=== PATIENT | female | born 1940 | race Caucasian/White ===

== ENCOUNTER 2019-02-25 18:00 | Inpatient (IN) | payer OTHER ==
[~2019-02-25] VITALS: Ht 165.1 cm; Wt 66.3 kg
[2019-02-25 18:00] VITALS: BP_SYST 189
[2019-02-25] MEDS ORDERED: NACL 0.9% 1,000 ML IV ONE (18:05)
[2019-02-25 18:55] LABS: BASOPHILS % (AUTO) 0.5 % (0.0-2.0); EOSINOPHILS # (AUTO) 0.1 K/uL (0.0-0.4); EOSINOPHILS % (AUTO) 1.9 % (0.0-4.0); HEMATOCRIT 38.1 % (36-48); HEMOGLOBIN 12.6 g/dL (12.0-16.0); LYMPHOCYTES # (AUTO) 1.1 K/uL (1.0-5.5); LYMPHOCYTES % (AUTO) 14.4 % (20.5-51.5); MEAN CORPUSCULAR HEMOGLOBIN 28 pg (27-31); MEAN CORPUSCULAR HGB CONC 33 % (32-36); MEAN CORPUSCULAR VOLUME 86 fL (79.0-98.0); MONOCYTES # (AUTO) 0.5 K/uL (0.0-1.0); MONOCYTES % (AUTO) 6.9 % (1.7-9.3); NEUTROPHILS # (AUTO) 5.8 K/uL (1.8-7.7); NEUTROPHILS % (AUTO) 76.3 % (40.0-70.0); PLATELET COUNT (AUTO) 216 K/uL (130-430); RED BLOOD CELL COUNT(AUTO) 4.43 MIL/uL (4.2-6.2); RED CELL DISTRIBUTION WIDTH 15.9 % (9.0-15.0); WHITE BLOOD COUNT (AUTO) 7.6 K/uL (4.8-10.8)
[2019-02-25 19:17] LABS: PROTHROMBIN TIME 9.8 SECS (9.5-12.5)
[2019-02-25 19:31] LABS: ANION GAP 7 (5-15); CHLORIDE 102 mmol/L (98-107); CREATININE 0.86 mg/dL (0.55-1.30); GLUCOSE 157 mg/dL (70-99); POTASSIUM 3.7 mmol/L (3.5-5.1); SODIUM SERUM 135 mmol/L (136-145); UREA NITROGEN, BLOOD 29 mg/dL (8-21)
[2019-02-25 19:35] LABS: ALANINE AMINOTRANSFERASE 13 U/L (12-78); ALBUMIN 3.9 g/dL (3.4-4.8); AMYLASE 73 U/L (0-100); ASPARTATE AMINOTRANSFERASE 13 U/L (10-37); LIPASE 150 U/L (73-393); TOTAL BILIRUBIN 0.8 mg/dL (0.0-1.0)
[2019-02-25 19:39] LABS: ALCOHOL, BLOOD < 3 mg/dL (<10)
[2019-02-25] MEDS ORDERED: D5NS 1,000 ML IV ONE (20:30)
[2019-02-25] MEDS ORDERED: INSU100I26 SQ (21:32)
[2019-02-25] MEDS ORDERED: INSU100V SQ (21:40)
[2019-02-25] MEDS ORDERED: D5W 1,000 ML IV PRN (22:03)
[2019-02-25] MEDS ORDERED: LIP10 PO (22:14)
[2019-02-25] MEDS ORDERED: ONDANSETRON HCL 4 MG/2 ML VIAL IVP PRN (22:15)
[2019-02-25] MEDS ORDERED: DOCUSATE SODIUM 100 MG/10 ML UDC PO PRN (22:15)
[2019-02-25] MEDS ORDERED: GLUCOSE 15 GM GEL (in 37.5 GM TUBE) PO PRN (22:15)
[2019-02-25] MEDS ORDERED: hydrALAZINE HCL 20 MG/ML VIAL IVP PRN (22:15)
[2019-02-25] MEDS ORDERED: DEXTROSE 50% JECT 50 ML DISP.SYRIN IVP PRN (22:15)
[2019-02-25] MEDS ORDERED: ACETAMINOPHEN 500 MG TABLET PO PRN (22:15)
[2019-02-25] MEDS ORDERED: HYDROcodone/ACETAMIN 7.5-325 MG TAB PO PRN (22:15)
[2019-02-25] MEDS ORDERED: SYNTHROID PO (22:19)
[2019-02-25 22:41] LABS: BILIRUBIN,URINE NEGATIVE (NEGATIVE); BLOOD, URINE 1+ (NEGATIVE); CLARITY/URINE SL HAZY (CLEAR); COLOR,URINE YELLOW (YELLOW); GLUCOSE,URINE 1+ (NEGATIVE); KETONES,URINE NEGATIVE (NEGATIVE); LEUKOCYTE ESTERASE ,URINE 3+ (NEGATIVE); NITRITE, URINE NEGATIVE (NEGATIVE); PH,URINE 5.5 (5.0-8.0); PROTEIN URINE NEGATIVE (NEGATIVE); UROBILINOGEN,URINE 0.2 (0.2-1.0)
[2019-02-25] MEDS ORDERED: ENALAPRIL MALEATE 10 MG TABLET (VASOTEC) PO ONE (22:45)
[2019-02-25 22:47] LABS: BARBITURATE, URINE NEGATIVE (NEG <=200); BENZODIAZEPINE, URINE NEGATIVE (NEG <=150); CANNABINOID, URINE NEGATIVE (NEG <=50); COCAINE, URINE NEGATIVE (NEG <=150); METHAMPHETAMINES SCREEN,URINE NEGATIVE (NEG <=500); OPIATE, URINE NEGATIVE (NEG <=100); PHENCYCLIDINE SCREEN,URINE NEGATIVE (NEG <=25); UR TRICYCLIC ANTIDEPRESSANTS NEGATIVE (NEG <=300); URINE AMPHETAMINE NEGATIVE (NEG <=500); URINE METHADONE NEGATIVE (NEG <=200); URINE OXYCODONE SCREEN NEGATIVE (NEG <=100); URINE PROPOXYPHENE SCREEN NEGATIVE (NEG <=300)
[2019-02-25 22:50] LABS: BACTERIA,URINE MODERATE /HPF (None Seen); WBC,URINE 50-80 /HPF (0-3)
[2019-02-25 22:52] LABS: MUCUS,URINE None Seen /LPF (None Seen); YEAST,URINE Moderate /HPF (None Seen)
[2019-02-25 22:54] VITALS: BP_SYST 165
[2019-02-25 22:57] LABS: FREE T4 (FREE THYROXINE) 0.8 ng/dL (0.6-1.6); PHOSPHORUS 3.1 mg/dL (2.7-4.5); THYROID STIMULATING HORMONE 0.44 uIu/mL (0.34-4.82)
[2019-02-25 23:52] VITALS: BP_SYST 162
[2019-02-25] MEDS: D5NS 1,000 ML IV SCH (23:54)
[2019-02-26 01:01] VITALS: BP_SYST 141
[2019-02-26 07:30] VITALS: BP_SYST 141
[2019-02-26] MEDS ORDERED: MECLIZINE HCL 25 MG TABLET (ANITVERT) PO PRN (11:15)
[2019-02-26] MEDS: INSULIN LISPRO SLIDING SCALE 100 UNITS/ML VIAL (humaLOG) SUBCUT PRN ×3 (12:32→20:49)
[2019-02-26 12:34] VITALS: BP_SYST 145
[2019-02-26] MEDS ORDERED: LISINOPRIL 10 MG TABLET (PRINIVIL) PO ONE (14:15)
[2019-02-26] MEDS: cefTRIAXone 1 GM in D5W 50 ML IV SCH (14:48)
[2019-02-26] MEDS: D5NS 1,000 ML IV SCH (14:48)
[2019-02-26 16:30] VITALS: BP_SYST 147
[2019-02-26 20:00] VITALS: BP_SYST 144
[2019-02-27] VITALS (9 sets, daily range): BP systolic 140–155
[2019-02-27] MEDS: INSULIN LISPRO SLIDING SCALE 100 UNITS/ML VIAL (humaLOG) SUBCUT PRN ×4 (06:45→22:15)
[2019-02-27 07:21] LABS: BASOPHILS % (AUTO) 0.4 % (0.0-2.0); EOSINOPHILS # (AUTO) 0.3 K/uL (0.0-0.4); EOSINOPHILS % (AUTO) 5.7 % (0.0-4.0); HEMATOCRIT 35.3 % (36-48); HEMOGLOBIN 11.6 g/dL (12.0-16.0); LYMPHOCYTES # (AUTO) 1.7 K/uL (1.0-5.5); LYMPHOCYTES % (AUTO) 29.8 % (20.5-51.5); MEAN CORPUSCULAR HEMOGLOBIN 29 pg (27-31); MEAN CORPUSCULAR HGB CONC 33 % (32-36); MEAN CORPUSCULAR VOLUME 87 fL (79.0-98.0); MONOCYTES # (AUTO) 0.5 K/uL (0.0-1.0); MONOCYTES % (AUTO) 9.7 % (1.7-9.3); NEUTROPHILS % (AUTO) 54.4 % (40.0-70.0); PLATELET COUNT (AUTO) 188 K/uL (130-430); RED BLOOD CELL COUNT(AUTO) 4.06 MIL/uL (4.2-6.2); WHITE BLOOD COUNT (AUTO) 5.6 K/uL (4.8-10.8)
[2019-02-27 07:33] LABS: ANION GAP 4 (5-15); CALCIUM 9.7 mg/dL (8.4-11.0); CHLORIDE 107 mmol/L (98-107); GLUCOSE 250 mg/dL (70-99); POTASSIUM 4.2 mmol/L (3.5-5.1); SODIUM SERUM 136 mmol/L (136-145); UREA NITROGEN, BLOOD 19 mg/dL (8-21)
[2019-02-27] MEDS: ATORVASTATIN 10 MG TABLET PO SCH (09:01)
[2019-02-27] MEDS: LISINOPRIL 10 MG TABLET (PRINIVIL) PO SCH (09:01)
[2019-02-27] MEDS: D5NS 1,000 ML IV SCH (09:10)
[2019-02-27] MEDS: FLUCONAZOLE 100 mg/ NS 50 ML IV SCH (09:53)
[2019-02-27] MEDS: cefTRIAXone 1 GM in D5W 50 ML IV SCH (14:52)
[2019-02-28] VITALS: BP_SYST 145
[2019-02-28] MEDS: D5NS 1,000 ML IV SCH (01:16)
[2019-02-28] MEDS: INSULIN LISPRO SLIDING SCALE 100 UNITS/ML VIAL (humaLOG) SUBCUT PRN ×2 (05:54→11:47)
[2019-02-28 08:00] VITALS: BP_SYST 153
[2019-02-28] MEDS: FLUCONAZOLE 100 mg/ NS 50 ML IV SCH (09:05)
[2019-02-28] MEDS: LISINOPRIL 10 MG TABLET (PRINIVIL) PO SCH (09:05)
[2019-02-28] MEDS: ATORVASTATIN 10 MG TABLET PO SCH (09:05)
[2019-02-28 12:20] VITALS: BP_SYST 154
[2019-02-28 12:21] VITALS: BP_SYST 154
[2019-02-28] MEDS: cefTRIAXone 1 GM in D5W 50 ML IV SCH (13:28)
== END 2019-02-28 14:10 | disposition home or self-care (01) | DRG 682 ==
LOC: SED 18:00 → SMU 21:44 → OBSVTOIN 02-26 10:38
PROVIDERS: ADMIT Family Medicine; ATTEND Family Medicine
DX: N17.0 Acute kidney failure with tubular necrosis (principal); G93.41 Metabolic encephalopathy; I16.1 Hypertensive emergency; N39.0 Urinary tract infection, site not specified; E10.649 Type 1 diabetes mellitus with hypoglycemia without coma; I70.90 Unspecified atherosclerosis; E78.5 Hyperlipidemia, unspecified; Z79.4 Long term (current) use of insulin; Z79.899 Other long term (current) drug therapy
CPT/HCPCS: 36415; 70450-TC; 71045; 80048; 80053; 80061; 80307; 81000-TC; 82150-TC; 82550-TC; 82962; 83036; 83605; 83690-TC; 83735-TC; 83880; 84100-TC; 84439; 84443-TC; 84484; 85025; 85610-TC; 85730-TC; 87040-TC; 87086; 87186-TC; 93005; 93306; 93880; 96360; 99285; G0378; G0481; G0482; J0696; J1450; J7042; J7060

== ENCOUNTER 2023-09-01 15:57 | Emergency (ER) | payer OTHER ==
[~2023-09-01] VITALS: Ht 160 cm; Wt 65.3 kg
[~2023-09-01 15:57] MED LIST: INSU100V SQ; LIP10 PO; SYNTHROID PO
[2023-09-01 16:00] VITALS: BP_SYST 117; PULSE 67; RESP 19; TEMP 98; O2SAT 99
[2023-09-01 17:08] LABS: BASOPHILS % (AUTO) 0.2 % (0.0-2.0); NEUTROPHILS # (AUTO) 4.8 K/uL (1.8-7.7)
[2023-09-01 17:17] LABS: EOSINOPHILS # (AUTO) 0.2 K/uL (0.0-0.4); EOSINOPHILS % (AUTO) 3.3 % (0.0-4.0); HEMOGLOBIN 12.1 g/dL (12.0-16.0); LYMPHOCYTES # (AUTO) 1.8 K/uL (1.0-5.5); LYMPHOCYTES % (AUTO) 24.1 % (20.5-51.5); MEAN CORPUSCULAR HEMOGLOBIN 30 pg (27-31); MEAN CORPUSCULAR HGB CONC 34 % (32-36); MEAN CORPUSCULAR VOLUME 88 fL (79.0-98.0); MONOCYTES # (AUTO) 0.6 K/uL (0.0-1.0); MONOCYTES % (AUTO) 8.5 % (1.7-9.3); NEUTROPHILS % (AUTO) 63.9 % (40.0-70.0); PLATELET COUNT (AUTO) 282 K/uL (130-430); RED CELL DISTRIBUTION WIDTH 14.9 % (9.0-15.0); WHITE BLOOD COUNT (AUTO) 7.5 K/uL (4.8-10.8)
[2023-09-01 17:31] LABS: ALANINE AMINOTRANSFERASE 27 U/L (12-78); ALBUMIN 3.4 g/dL (3.4-4.8); ANION GAP 7 (5-15); ASPARTATE AMINOTRANSFERASE 15 U/L (10-37); BILIRUBIN,DIRECT 0.1 mg/dL (0.0-0.3); CALCIUM 9.9 mg/dL (8.4-11.0); CARBON DIOXIDE 26 mmol/L (23-29); CHLORIDE 110 mmol/L (98-107); GLUCOSE 86 mg/dL (74-106); POTASSIUM 4.2 mmol/L (3.5-5.1); SODIUM SERUM 143 mmol/L (136-145); TOTAL BILIRUBIN 0.6 mg/dL (0.0-1.0); TOTAL PROTEIN, SERUM 6.8 g/dL (6.4-8.3); UREA NITROGEN, BLOOD 31 mg/dL (8-21)
[2023-09-01] MEDS: ACETAMINOPHEN 500 MG TABLET PO ONE (17:31)
[2023-09-01] MEDS: NACL 0.9% 1,000 ML IV ONE (19:12)
[2023-09-01 19:34] VITALS: BP_SYST 117; PULSE 67; RESP 19; TEMP 98; O2SAT 99
== END 2023-09-01 19:34 | disposition home or self-care (01) ==
LOC: SED 15:57
DX: S00.03XA Contusion of scalp, initial encounter (principal); E11.9 Type 2 diabetes mellitus without complications; I10 Essential (primary) hypertension; E86.0 Dehydration; W01.0XXA Fall on same level from slipping, tripping and stumbling without subsequent striking against object, initial encounter; Y93.89 Activity, other specified; Y92.89 Other specified places as the place of occurrence of the external cause; Y99.8 Other external cause status; Z79.899 Other long term (current) drug therapy
CPT/HCPCS: 36415; 70450-TC; 80048; 80076; 85025; 93005; 99284

== ENCOUNTER 2023-11-20 14:55 | Emergency (ER) | payer OTHER ==
[~2023-11-20] VITALS: Ht 154.9 cm; Wt 64.4 kg
[2023-11-20 16:15] VITALS: BP_SYST 128; PULSE 86; RESP 18; TEMP 98.2; O2SAT 96
[2023-11-20 17:05] LABS: BASOPHILS % (AUTO) 0.4 % (0.0-2.0); EOSINOPHILS # (AUTO) 0.2 K/uL (0.0-0.4); EOSINOPHILS % (AUTO) 2.2 % (0.0-4.0); HEMATOCRIT 38.8 % (36-48); HEMOGLOBIN 12.8 g/dL (12.0-16.0); LYMPHOCYTES # (AUTO) 1.7 K/uL (1.0-5.5); LYMPHOCYTES % (AUTO) 21.6 % (20.5-51.5); MEAN CORPUSCULAR HEMOGLOBIN 29 pg (27-31); MEAN CORPUSCULAR HGB CONC 33 % (32-36); MEAN CORPUSCULAR VOLUME 88 fL (79.0-98.0); MONOCYTES # (AUTO) 0.7 K/uL (0.0-1.0); NEUTROPHILS # (AUTO) 5.4 K/uL (1.8-7.7); NEUTROPHILS % (AUTO) 66.8 % (40.0-70.0); PLATELET COUNT (AUTO) 268 K/uL (130-430); RED CELL DISTRIBUTION WIDTH 15.6 % (9.0-15.0)
[2023-11-20 17:16] LABS: ACETONE, SERUM NEGATIVE (NEGATIVE)
[2023-11-20 17:18] LABS: ALANINE AMINOTRANSFERASE 25 U/L (12-78); ALBUMIN 3.6 g/dL (3.4-4.8); ANION GAP 11 (5-15); ASPARTATE AMINOTRANSFERASE 15 U/L (10-37); CARBON DIOXIDE 23 mmol/L (23-29); CHLORIDE 101 mmol/L (98-107); CREATININE 1.08 mg/dL (0.55-1.30); GLUCOSE 305 mg/dL (74-106); POTASSIUM 4.2 mmol/L (3.5-5.1); SODIUM SERUM 135 mmol/L (136-145); TOTAL BILIRUBIN 0.8 mg/dL (0.0-1.0); TOTAL PROTEIN, SERUM 7.2 g/dL (6.4-8.3); UREA NITROGEN, BLOOD 29 mg/dL (8-21)
[2023-11-20 17:20] LABS: BILIRUBIN,URINE NEGATIVE (NEGATIVE); BLOOD, URINE 3+ (NEGATIVE); CLARITY/URINE SL CLOUDY (CLEAR); COLOR,URINE YELLOW (YELLOW); GLUCOSE,URINE NEGATIVE (NEGATIVE); KETONES,URINE 1+ (NEGATIVE); LEUKOCYTE ESTERASE ,URINE 2+ (NEGATIVE); NITRITE, URINE NEGATIVE (NEGATIVE); PH,URINE 5.5 (5.0-8.0); PROTEIN URINE 2+ (NEGATIVE); UROBILINOGEN,URINE 0.2 (0.2-1.0)
[2023-11-20 17:26] LABS: BACTERIA,URINE FEW /HPF (None Seen); MUCUS,URINE None Seen /LPF (None Seen); WBC,URINE >100 /HPF (0-3)
[2023-11-20 18:30] VITALS: TEMP 98.2
[2023-11-20 21:02] VITALS: BP_SYST 118; PULSE 80; RESP 18; O2SAT 97
[2023-11-20] MEDS ORDERED: cefTRIAXone 1 GM VIAL ONE (21:10)
[2023-11-20] MEDS: cefTRIAXone 1 GM in D5W 50 ML IV ONE (21:11)
[2023-11-20] MEDS: KETOROLAC TROMETHAMINE 15 MG VIAL IVP ONE (21:12)
[2023-11-20] MEDS: PHENAZOPYRIDINE HCL 100 MG TABLET PO ONE (21:12)
[2023-11-20] MEDS: NACL 0.9% 1,000 ML IV ONE (21:13)
[2023-11-20] MEDS ORDERED: PHEN-726 PO (22:32)
[2023-11-20] MEDS ORDERED: CEPH-548 PO (22:32)
== END 2023-11-20 23:05 | disposition home or self-care (01) ==
LOC: SED 14:55
DX: N39.0 Urinary tract infection, site not specified (principal); E11.65 Type 2 diabetes mellitus with hyperglycemia; E86.0 Dehydration; I10 Essential (primary) hypertension; Z79.4 Long term (current) use of insulin; Z79.899 Other long term (current) drug therapy
CPT/HCPCS: 99285; 96374; 71045; 96375; 80053; 81001; 82009; 85025; 87040; 87086; 84484; 36415; 93005; 82948; 83605; 81000; 81015; J0696; J1885; 87186